=== PATIENT | female | born 1975 | race Hispanic/Latino ===

== ENCOUNTER → 2024-09-26 | Day surgery (SDC) | payer OTHER ==
[~2024-09-26] MED LIST: AMITRIPTYLINE H10 MG PO; BACLOFEN10 MG PO; CELEBREX200 MG PO; FAMOTIDINE20 MG PO; LIDOCAINE HCL 2% LOCAL INJ 5 ML SDV VIAL INJ ONE; MAGNESIUM PO; MIDAZOLAM HCL 2 MG/2 ML VIAL ONE; NEURONTIN300 MG PO; POTASSIUM PO; PROPOFOL IV EMULSION 10 MG/ML 20 ML VIAL ONE; VITAMIN D31250 MCG PO; [UNRECOGNIZED DRUG - OTHER] PO
[2024-09-26] MEDS: LACTATED RINGER'S 1,000 ML ONE (06:30)
[2024-09-26 07:24] VITALS: TEMP 97.2
[2024-09-26 07:40] VITALS: BP 136/90; PULSE 92; RESP 15; O2SAT 96
== END | disposition home or self-care (01) ==
LOC: OR 06:03
PROVIDERS: ATTEND Internal Medicine Gastroenterology
DX: Z12.11 Encounter for screening for malignant neoplasm of colon (principal); K64.8 Other hemorrhoids; K59.00 Constipation, unspecified; Z01.810 Encounter for preprocedural cardiovascular examination; Z80.0 Family history of malignant neoplasm of digestive organs; K76.89 Other specified diseases of liver
CPT/HCPCS: 45378; 93005; J2003; J2250; J2704; J7121